=== PATIENT | female | born 1975 | race African-American/Black ===

== ENCOUNTER 2017-07-13 09:32 | Inpatient (IN) | payer OTHER ==
[~2017-07-13] VITALS: Ht 154.9 cm; Wt 69.4 kg
[2017-07-13 09:37] VITALS: Ht 154.9 cm; Wt 69.4 kg
[2017-07-13 10:43] LABS: BASOPHIL % 0.2 % (0-2); PLATELET COUNT 198 x10^3mcL (130-400); RED CELL DISTRIBUTION WIDTH 14.4 % (11.5-14.5)
[2017-07-13 10:51] LABS: CALCIUM 8.7 mg/dL (8.5-10.1); CARBON DIOXIDE 32.2 mmol/L (21-32); CREATININE SERUM 1.3 mg/dL (0.6-1.0)
[2017-07-13 10:55] LABS: BILIRUBIN TOTAL 0.4 mg/dL (0.20-1.00)
[2017-07-13 10:56] LABS: ALBUMIN 3.1 g/dL (3.4-5.0)
[2017-07-13] MEDS ORDERED: COZAAR100 MG PO (11:18)
[2017-07-13 13:56] LABS: MAGNESIUM 1.9 mg/dL (1.8-2.4); PHOSPHOROUS 4.1 mg/dL (2.5-4.9)
[2017-07-13 13:57] LABS: T3 TOTAL 0.79 ng/mL
[2017-07-13 14:08] LABS: CHOLESTEROL/HDL RATIO 2.7
[2017-07-13 14:15] LABS: FREE T4 1.01 ng/dL (0.76-1.46); FREE THYROXINE INDEX 2.4 ug/dL (1.4-4.5); T4(THYROXINE) 7.1 ug/dL (4.7-13.3)
[2017-07-13 14:17] VITALS: BP 190/127
[2017-07-13 17:11] VITALS: BP 194/137
[2017-07-13 17:22] VITALS: BP 194/137
[2017-07-13 18:03] LABS: microscopic required? YES; urine erythrocyte TRACE (NEGATIVE)
[2017-07-13 18:10] LABS: AMPHETAMINE QUAL UR NONE DETECTED (NEG <=1000)
[2017-07-13 22:20] VITALS: BP 177/112
[2017-07-14] VITALS (9 sets, daily range): BP systolic 158–201; BP diastolic 100–142
[2017-07-14 03:14] LABS: BASOPHIL % 0.3 % (0-2); PLATELET COUNT 202 x10^3mcL (130-400); RED CELL DISTRIBUTION WIDTH 14.5 % (11.5-14.5)
[2017-07-14 03:29] LABS: CALCIUM 8.4 mg/dL (8.5-10.1); CARBON DIOXIDE 31.7 mmol/L (21-32); CREATININE SERUM 1.2 mg/dL (0.6-1.0); POTASSIUM SERUM 3.3 mmol/L (3.5-5.1)
[2017-07-15 06:05] VITALS: BP 167/110
[2017-07-15 06:36] LABS: CALCIUM 8.6 mg/dL (8.5-10.1); CARBON DIOXIDE 30.1 mmol/L (21-32); CREATININE SERUM 1.3 mg/dL (0.6-1.0); MAGNESIUM 1.7 mg/dL (1.8-2.4); PHOSPHOROUS 3.5 mg/dL (2.5-4.9); POTASSIUM SERUM 3.7 mmol/L (3.5-5.1)
[2017-07-15 07:06] LABS: BASOPHIL % 0.3 % (0-2)
[2017-07-15 07:07] LABS: RED CELL DISTRIBUTION WIDTH 14.9 % (11.5-14.5)
[2017-07-15 07:08] LABS: PLATELET COUNT 200 x10^3mcL (130-400)
[2017-07-15 12:25] VITALS: BP 148/97
[2017-07-15] MEDS ORDERED: COREG12.5 MG PO (17:38)
[2017-07-15] MEDS ORDERED: PRO10 PO (17:38)
[2017-07-15] MEDS ORDERED: HYD25 PO (17:39)
[2017-07-15] MEDS ORDERED: COZ50 PO (17:39)
[2017-07-15 17:43] VITALS: BP 194/137
== END 2017-07-15 17:50 | disposition left against medical advice (07) | DRG 280 ==
LOC: ED 09:32 → EDBD 09:32 → DU 11:50
PROVIDERS: Emergency Medicine; Family Medicine Sports Medicine
DX: I21.4 Non-ST elevation (NSTEMI) myocardial infarction (principal); N17.0 Acute kidney failure with tubular necrosis; I16.1 Hypertensive emergency; E44.0 Moderate protein-calorie malnutrition; N39.0 Urinary tract infection, site not specified; I10 Essential (primary) hypertension; E78.00 Pure hypercholesterolemia, unspecified; E87.6 Hypokalemia; Z53.29 Procedure and treatment not carried out because of patient's decision for other reasons; Z53.21 Procedure and treatment not carried out due to patient leaving prior to being seen by health care provider; R31.9 Hematuria, unspecified; E78.5 Hyperlipidemia, unspecified; Z86.73 Personal history of transient ischemic attack (TIA), and cerebral infarction without residual deficits; Z98.84 Bariatric surgery status; Z79.899 Other long term (current) drug therapy; Z72.89 Other problems related to lifestyle; Z68.27 Body mass index [BMI] 27.0-27.9, adult
CPT/HCPCS: 83880; 84439; A9500; J0360; J1644; J1956; J2060; J2785; J3490; J7030; Q0092